=== PATIENT | male | born 1970 | race Caucasian/White ===

== ENCOUNTER 2019-06-15 16:51 | Emergency (ER) | payer OTHER ==
[2019-06-15 17:02] VITALS: BMI 22.4
[2019-06-15] MEDS ORDERED: ASPIRIN 325 MG TABLET PO ONE (17:05)
[2019-06-15] MEDS ORDERED: morphine CARPU-JECT 4 MG/1 ML DISP.SYRIN IVPUSH ONE (17:06)
[2019-06-15 17:10] LABS: BASO % 0.8 % (0-2.0); EOS % 1.1 % (0-4.5); HEMATOCRIT 42.8 % (35.4-49); HEMOGLOBIN 14.6 GM/dL (11.7-16.9); LYMPH % 24.5 % (8-40); MCH 28.9 pg (25.7-33.7); MCHC 34.1 g/dl (32.0-35.9); MEAN CELL VOLUME 84.9 fl (80-96); MEAN PLT VOLUME 8.9 fl (7.5-11.1); MONO % 7.5 % (3.8-10.2); NEUT % 66.1 % (42.8-82.8); PLATELET COUNT 237 K/MM3 (134-434); RBC 5.04 M/mm3 (4.00-5.60); RDW 12.4 % (11.9-15.9); WHITE BLOOD COUNT 12.4 K/mm3 (4.0-10.0)
[2019-06-15] MEDS ORDERED: ASPIRIN 81 MG CHEWABLE TABLETS ONE (17:10)
[2019-06-15] MEDS ORDERED: morphine SULFATE 4 MG/ML VIAL ONE (17:11)
[2019-06-15] MEDS ORDERED: ONDANSETRON 4 MG/2 ML VIAL IVPUSH ONE (17:13)
[2019-06-15] MEDS ORDERED: SODIUM CHLORIDE 0.9% 1000 ML INFUS.BAG IV SCH (17:15)
[2019-06-15] MEDS ORDERED: ONDANSETRON 4 MG/2 ML VIAL ONE (17:15)
[2019-06-15 17:23] LABS: PROTHROMBIN TIME (PATIENT) 11.8 SEC (9.7-13.0)
[2019-06-15 17:26] LABS: ACTIVATED PTT 41.2 SECONDS (25.2-36.5)
[2019-06-15 17:41] LABS: ALBUMIN 3.9 g/dl (3.4-5.0); BILIRUBIN,TOTAL 0.6 mg/dL (0.2-1); BLOOD UREA NITROGEN 15.5 mg/dL (7-18); CALCIUM 9.3 mg/dL (8.5-10.1); CREATININE 1.6 mg/dL (0.55-1.3); POTASSIUM 3.5 mmol/L (3.5-5.1); TOT PROT 6.8 g/dl (6.4-8.2)
[2019-06-15 17:42] LABS: N-TERMINAL BNP 74.8 pg/ml (5-125); PHOSPHOROUS 5.2 mg/dL (2.5-4.9)
--- NOTE | 2019-06-15 18:01 | PDOC ---
History of Present Illness - General Chief Complaint: Cardiac Arrest Stated Complaint: POST CARDIAC ARREST Time Seen by Provider: 06/15/19 17:09 History Source: Patient Exam Limitations: No Limitations - History of Present Illness Initial Comments: 48 yo male pmh HLD and an enlarged heart presents to the ED via EMS after syncope/cardiac arrest. Pt reports playing tennis, became lightheaded and lost consciousness. Pt found to have no pulse and CPR started while AED machine was applied and pt shocked. The episode lasted approx 3 min and the pt regained consciousness, AOX3 and unaware of what had transpired. Pt has complaints of CP to the area the pads were placed but otherwise feels at his baseline health. Denies SOB, back pain, calf tenderness, recent travel, abdominal pain, changes in bowel or bladder habits, F/C/N/V. Past History - Past Medical History Allergies/Adverse Reactions: Allergies Allergy/AdvReac Type Severity Reaction Status Date / Time Penicillins Allergy Verified 06/15/19 17:05 Home Medications: Ambulatory Orders NK [No Known Home Medication] 06/15/19 COPD: No Hypercholesterolemia: Yes - Psycho Social/Smoking Cessation Hx Smoking History: Never smoked Hx Alcohol Use: No Drug/Substance Use Hx: No Review of Systems - Review of Systems Constitutional: Yes: See HPI HEENTM: Yes: See HPI Respiratory: Yes: See HPI Cardiac (ROS): Yes: See HPI ABD/GI: Yes: See HPI : Yes: See HPI Musculoskeletal: Yes: See HPI Integumentary: Yes: See HPI Neurological: Yes: See HPI *Physical Exam - Vital Signs Last Vital Signs Temp Pulse Resp BP Pulse Ox 82 17 130/88 100 06/15/19 17:47 06/15/19 17:47 06/15/19 17:47 06/15/19 17:47 - Physical Exam General Appearance: Yes: Nourished, Appropriately Dressed. No: Apparent Distress HEENT: positive: EOMI, BERNADETTE Neck: positive: Supple. negative: Carotid bruit, Tender lateral, Tender midline Respiratory/Chest: positive: Lungs Clear, Normal Breath Sounds. negative: Accessory Muscle Use, Rapid RR, Crackles, Rales, Rhonchi, Stridor, Wheezing Cardiovascular: positive: Regular Rhythm, Regular Rate, S1, S2. negative: Edema , JVD, Murmur Vascular Pulses: Dorsalis-Pedis (R): 3+, Doralis-Pedis (L): 3+ Gastrointestinal/Abdominal: positive: Flat, Soft. negative: Pulsatile Mass, Distended, Guarding, Rebound, Tenderness Extremity: positive: Normal Capillary Refill, Normal Inspection, Normal Range of Motion Integumentary: positive: Normal Color, Dry, Warm Neurologic: positive: channel program manager II-XII NML intact, Fully Oriented, Alert, Normal Mood/ Affect, Normal Response, Motor Strength / ED Treatment Course - LABORATORY CBC & Chemistry Diagram: 06/15/19 17:00 06/15/19 17:00 - ADDITIONAL ORDERS Additional order review: Laboratory Results 06/15/19 06/15/19 06/15/19 17:00 17:00 17:00 PT with INR 11.80 INR 1.00 PTT (Actin FS) 41.2 H Sodium 141 Potassium 3.5 Chloride 105 Carbon Dioxide 21 Anion Gap 16 BUN 15.5 Creatinine 1.6 H Est GFR (CKD-EPI)AfAm 58.18 Est GFR (CKD-EPI)NonAf 50.20 Random Glucose 143 H Calcium 9.3 Phosphorus 5.2 H Magnesium 2.0 Total Bilirubin 0.6 AST 190 H ALT 245 H Alkaline Phosphatase 61 Troponin I < 0.02 B-Natriuretic Peptide 74.8 Total Protein 6.8 Albumin 3.9 06/15/19 17:00 RBC 5.04 MCV 84.9 MCHC 34.1 RDW 12.4 MPV 8.9 Neutrophils % 66.1 Lymphocytes % 24.5 Monocytes % 7.5 Eosinophils % 1.1 Basophils % 0.8 - Medications Given in the ED: ED Medications Discontinued Medications Generic Name Dose Route Start Last Admin Trade Name Eric PRN Reason Stop Dose Admin Aspirin 325 mg 06/15/19 17:05 06/15/19 17:23 Asa - PO 06/15/19 17:06 325 mg ONCE ONE Administration Morphine Sulfate 4 mg 06/15/19 17:06 06/15/19 17:23 Morphine Injection - IVPUSH 06/15/19 17:07 4 mg ONCE ONE Administration Ondansetron HCl 4 mg 06/15/19 17:13 06/15/19 17:23 Zofran Injection IVPUSH 06/15/19 17:14 4 mg ONCE ONE Administration Medical Decision Making - Medical Decision Making 48 yo male pmh HLD and "enlarged heart" presents to ED after cardiac arrest with shock, ROSC achieved now in NSR Current complaints of chest pain Pt immediately placed on monitor with pad s connected, IV placed EKG shows elevations in AVR, possible left main disease Pt agrees to be transferred to [facility] for likely Cath Accepting Physician, Dr. Vallejo, [facility] Interventional Cardiology service to Tele , likely Cath in the AM 06/15/19 18:20 [facility] transfer center state 30 min arrival for transfer. Pt transferred to [facility] Discharge - Discharge Information Problems reviewed: Yes Clinical Impression/Diagnosis: Cardiac abnormality Disposition: TRANSFER ACUTE CARE/OTHER HOSP - Follow up/Referral Referrals: ON STAFF,NOT [Primary Care Provider] - - Patient Discharge Instructions - Post Discharge Activity
--- NOTE | 2019-06-15 18:21 | PDOC ---
Documentation entered by Jasmine Wahl SCRIBE, acting as scribe for Magnolia Augustin MD. Magnolia Augustin MD: This documentation has been prepared by the scribe, Jasmine Wahl SCRIBE, under my direction and personally reviewed by me in its entirety. I confirm that the documentation accurately reflects all work, treatment, procedures, and medical decision making performed by me. Attending Attestation - Resident Resident Name: Kevin Burden - ED Attending Attestation I have performed the following: I have examined & evaluated the patient, The case was reviewed & discussed with the resident, I agree w/resident's findings & plan, Exceptions are as noted - HPI HPI: 06/15/19 18:01 The patient is a 48-year-old male with a past medical history significant for HLD and enlarged heart who presents to the emergency department via EMS s/p syncope. The patient was playing tennis this afternoon when he had an onset of lightheadedness and collapsed on the court. A nearby bystander, who was also an EMT, noted the patient to be pulseless, and CPR was started for 2-3 minutes. AED shock was administered x1 with the patient regaining consciousness. EMS was called, and the patient was transferred to the ER in BLS transportation. At the ER, the patient is awake, stable, and is complaining of chest pain. Allergies: penicillins Family history: Early MIs. - Physicial Exam PE: 06/15/19 18:17 NAD, well appearing RRR CTABL soft NTND neuro nonfocal. A&O x 3 EKG w/ DOROTHY <1mm aVR w/ < 1mm depression inferolaterally. EKG concerning for ischemia/left main disease. - Medical Decision Making 06/15/19 17:22 Call placed to [facility] Case discussed with Dr. Astudillo. 06/15/19 17:33 Call placed to [facility]. Waiting for a call back from family practitioner. 06/15/19 18:18 48yoM s/p likely VF/VT arrest during exertion, responded to external defib now A &O x 3 in stable condition. Pt w/ hx of HL and FHx of early ID. EKG concerning for ischemia without meeting STEMI criteria. - labs - asa, ivf - zoll - cardaic monitr - pt accepted by interventional cardiology for STAT transfer to [facility] for monitoring and cardiac cath in the morning. - [facility].
[2019-06-15 19:03] VITALS: BP 124/72; PULSE 80
[2019-06-15 19:22] VITALS: TEMP 98.6
--- NOTE | 2019-06-16 09:32 | EKG ---
Test Reason : Blood Pressure : / mmHG Vent. Rate : 071 BPM Atrial Rate : 071 BPM P-R Int : 104 ms QRS Dur : 098 ms QT Int : 396 ms P-R-T Axes : 040 045 026 degrees QTc Int : 430 ms SINUS RHYTHM WITH SHORT IA POSSIBLE LEFT ATRIAL ENLARGEMENT BORDERLINE ECG NO PREVIOUS ECGS AVAILABLE Confirmed by Kassi Kemp ([id number]) on 06/16/2019 9:32:23 AM Referred By: Confirmed By:Kassi Kemp
== END 2019-06-15 19:20 | disposition short-term general hospital (02) ==
LOC: JER 16:51
PROC: 3E033NZ Introduction of Analgesics, Hypnotics, Sedatives into Peripheral Vein, Percutaneous Approach (ICD-10-PCS; principal; 2019-06-15)
PROC: 3E033GC Introduction of Other Therapeutic Substance into Peripheral Vein, Percutaneous Approach (ICD-10-PCS; 2019-06-15)
DX: R07.9 Chest pain, unspecified (principal); Z86.74 Personal history of sudden cardiac arrest; R55 Syncope and collapse; I51.7 Cardiomegaly; E78.00 Pure hypercholesterolemia, unspecified; Z82.49 Family history of ischemic heart disease and other diseases of the circulatory system
CPT/HCPCS: 36415; 71045-TC-FY; 80053; 83735; 83880; 84100; 84484; 85025; 85610; 85730; 93005; 93010; 99285-25; J7030